=== PATIENT | male | born 1955 | race Caucasian/White ===

== ENCOUNTER 2020-09-30 15:40 | Emergency (ER) | payer MEDICARE, OTHER ==
[2020-09-30] MEDS ORDERED: Bacitracin Oint 1 GM U/D Packet TOP ONE (16:09)
--- NOTE | 2020-09-30 16:22 | EDM.PDOC ---
ED HPI GENERAL MEDICAL PROBLEM - General Chief Complaint: Laceration Stated Complaint: FISH HOOK IN FINGER Time Seen by Provider: 09/30/20 16:04 Source of Information: Reports: Patient, Family History Limitations: Reports: No Limitations - History of Present Illness INITIAL COMMENTS - FREE TEXT/NARRATIVE: 65 yo male here with a single mar of a treble hook lodged in the L palm. His tetanus is UTD. Is from [facility]. Onset: Today, Sudden Onset Date: 09/30/20 Duration: Minutes: (90), Constant Location: Reports: Upper Extremity, Left Quality: Reports: Sharp Severity: Mild Improves with: Reports: Immobilization, Rest Worsens with: Reports: Movement (of hook) Context: Reports: Trauma Associated Symptoms: Reports: No Other Symptoms Treatments [employer] NOVELTY: Reports: Other (see below) (none) - Related Data Allergies Allergy/AdvReac Type Severity Reaction Status Date / Time No Known Allergies Allergy Verified 09/30/20 15:55 Home Meds: Home Meds Aspirin [Naga Chewable] 81 mg PO BEDTIME 09/30/20 [History] Betamethasone/Propylene Glyc [Betamethasone DP Aug 0.05%] 30 ml TP DAILY PRN 09/30/20 [History] Calcium Carbonate [Calcium] 600 mg PO DAILY 09/30/20 [History] Doxylamine Succinate [Unisom] 25 mg PO BEDTIME 09/30/20 [History] Flaxseed Oil [Flax Oil] 1,000 mg PO DAILY 09/30/20 [History] Fluticasone Furoate [Arnuity Ellipta] 50 mcg IH ASDIRECTED PRN 09/30/20 [History] Glucosamine/Msm/Chondroitin A [Glucosamine Chondroit MSM Tab] 1 each PO DAILY 09/30/20 [History] Multivitamin [Multi-Vitamin Daily] 1 each PO DAILY 09/30/20 [History] Omeprazole 20 mg PO DAILY 09/30/20 [History] Valsartan/Hydrochlorothiazide [Valsartan-Hctz 320-25 mg Tab] 1 tab PO DAILY 09/30/20 [History] amLODIPine [Norvasc] 5 mg PO DAILY 09/30/20 [History] atorvaSTATin [Lipitor] 20 mg PO BEDTIME 09/30/20 [History] Past Medical History HEENT History: Reports: Hard of Hearing, Impaired Vision Cardiovascular History: Reports: High Cholesterol, Hypertension Gastrointestinal History: Reports: GERD Social & Family History - Tobacco Use Tobacco Use Status *Q: Never Tobacco User - Caffeine Use Caffeine Use: Reports: Coffee - Recreational Drug Use Recreational Drug Use: No ED ROS GENERAL - Review of Systems Review Of Systems: See Below Constitutional: Reports: No Symptoms Skin: Reports: Wound (puncture L palm from a fish hook. ) Neurological: Reports: No Symptoms ED EXAM, SKIN/RASH Exam: See Below Exam Limited By: No Limitations General Appearance: Alert, WD/WN, No Apparent Distress Extremities: Normal Inspection Neurological: Alert, Oriented, CN II-XII Intact, Normal Cognition, No Motor/Sensory Deficits Psychiatric: Normal Affect, Normal Mood Skin: Warm, Dry, Normal Color, No Rash, Wound/Incision (single mar of a fish hook in his L palm. No active bleeding or signs of infection. ). No: Intact Location, Skin: Upper Extremity, Left Characteristics: Other (puncture) Associated features: No: Warmth, Induration, Lymphangitis ED SKIN PROCEDURES - Foreign Body Removal Indication:: fish hook Performing Doctor:: Mayco Carlton Anesthesia Type: Local (1% lidocaine locally) Complications:: No Comments:: fish hook removed, wound cleaned and dressed by RN Course - Vital Signs Last Recorded V/S: Last Vital Signs Temp 36.5 C 09/30/20 16:00 Pulse 68 09/30/20 16:00 Resp 14 09/30/20 16:00 BP 139/88 09/30/20 16:00 Pulse Ox 97 09/30/20 16:00 - Orders/Labs/Meds Orders: Active Orders 24 hr Category Date Time Status Lidocaine 1% [Xylocaine-MPF 1%] Med 09/30/20 16:07 Once 5 ml INJECT ONETIME ONE Departure - Departure Time of Disposition: 16:27 Disposition: Home, Self-Care 01 Condition: Good Clinical Impression: Fish hook injury of left hand Qualifiers: Encounter type: initial encounter Qualified Code(s): S69.92XA - Unspecified injury of left wrist, hand and finger(s), initial encounter - Discharge Information *PRESCRIPTION DRUG MONITORING PROGRAM REVIEWED*: Not Applicable *COPY OF PRESCRIPTION DRUG MONITORING REPORT IN PATIENT BERE: Not Applicable Instructions: Puncture Wound, [id number] Referrals: PCP,None [Primary Care Provider] - Additional Instructions: Clean wound twice daily with soap and water. Dry. Apply antibiotic ointment. Recheck for signs of infection. Keep wound clean for 3 days. Sepsis Event Note (ED) - Evaluation Sepsis Screening Result: No Definite Risk - Focused Exam Vital Signs: Vital Signs Temp Pulse Resp BP Pulse Ox 09/30/20 16:00 36.5 C 68 14 139/88 97 - My Orders Last 24 Hours: My Active Orders 09/30/20 16:07 Lidocaine 1% [Xylocaine-MPF 1%] 5 ml INJECT ONETIME ONE - Assessment/Plan Last 24 Hours: My Active Orders 09/30/20 16:07 Lidocaine 1% [Xylocaine-MPF 1%] 5 ml INJECT ONETIME ONE
== END 2020-09-30 16:34 | disposition home or self-care (01) ==
LOC: JP.ED 15:40
DX: S60.552A Superficial foreign body of left hand, initial encounter (principal); E78.00 Pure hypercholesterolemia, unspecified; I10 Essential (primary) hypertension; K21.9 Gastro-esophageal reflux disease without esophagitis; Z79.82 Long term (current) use of aspirin; Z79.899 Other long term (current) drug therapy; W45.8XXA Other foreign body or object entering through skin, initial encounter
CPT/HCPCS: 99283